=== PATIENT | male | born 1955 | race Caucasian/White ===

== ENCOUNTER 2016-11-05 07:36 | Day surgery (SDC) | payer BC ==
[2016-10-30 10:04] LABS: HEMATOCRIT 45.9 % (40.0-51.0); HEMOGLOBIN 15.8 g/dL (13.6-17.8)
[2016-10-30 10:12] LABS: BUN (BLOOD UREA NITROGEN) 11 MG/DL (6-23); CALCIUM, SERUM 8.8 MG/DL (8.5-10.4); CHLORIDE, SERUM 105 MMOL/L (96-112); CO2 (CARBON DIOXIDE) 27 MMOL/L (24-34); CREATININE 0.98 MG/DL (0.70-1.30); GFR AFRICAN AMERICAN 95 ML/MIN (>=60); GFR NON AFRICAN AMERICAN 82 ML/MIN (>=60); GLUCOSE, SERUM 115 MG/DL (60-99); POTASSIUM, SERUM 3.9 MMOL/L (3.5-5.3); SODIUM, SERUM 141 MMOL/L (135-148)
--- NOTE | ~2016-11-05 | OP ---
Record Of Operation [facility] [address] [place]. [address] NAME: BASIL DIAZ : 51 STATUS : [facility]#: [id number] AGE: 60 ADM/REG DATE : 11/05/16 MR#: [id number] REPORT SERV DATE: 11/05/16 DICTATED BY: LISA BRANHAM DATE: 11/05/16 REPORT STATUS : Draft TRANSCRIBED BY: MODL DATE: 11/05/16 DATE OF PROCEDURE: 11/05/2016 PREOPERATIVE DIAGNOSIS: Right submandibular mixed tumor. POSTOPERATIVE DIAGNOSIS: Right submandibular mixed tumor. PROCEDURE: Right submandibular gland excision. ANESTHESIA: General. COMPLICATIONS: None. COUNTS: All counts were correct following the procedure. ESTIMATED BLOOD LOSS: 5 mL. PREOPERATIVE INFORMED CONSENT: We discussed the risks and benefits of surgery including but not limited to bleeding, infection, possible cranial nerve injury resulting in temporary or permanent deficits, specifically the marginal mandibular nerve, the hypoglossal nerve, and the lingual nerve, and possible postoperative fistula. He understands the risks and benefits of surgery and consent is on the chart. PROCEDURE IN DETAIL: The patient was brought to the operating suite and placed on operative table in supine position. General endotracheal anesthesia was initiated without incident. The patient's right neck was cleaned, prepped, and draped in usual sterile fashion. A curvilinear incision was marked out two fingerbreadths below the lower border of the mandible and injected with 6 mL of 1% lidocaine and 1:100,000 epinephrine. Following this, a #15 blade was used to make an incision down the underlying subcutaneous tissues and down through the platysmal layer, and using curved Metzenbaum scissors, a short platysma flap was raised down the inferior aspect of the submandibular gland taking care to avoid the marginal mandibular nerve, dissecting directly on to the capsule of the submandibular gland, dividing the feeding vessels using Harmonic scalpel. The gland was dissected out surrounding tissues anteriorly. The mylohyoid muscle was dissected out and retracted anteriorly exposing the floor of the submandibular triangle. The terminal branches of the facial artery posteriorly dissected out and divided using the Harmonic scalpel. The hypoglossal nerve and lingual nerve were both identified and preserved. The submandibular ganglion was dissected out and divided using the Harmonic scalpel. The submandibular duct was dissected out and doubly clamped with hemostasis and divided and ligated using 2-0 silk suture ligature. The submandibular gland was removed en bloc and sent for frozen section. 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 The wound was copiously irrigated with sterile saline and closed in layers using 3-0 Vicryl and 4-0 Prolene subcuticular closure followed by benzoin, Steri-Strips, Telfa, and Tegaderm dressing. The patient was awakened from anesthesia and taken to recovery room in stable condition. Record Of Operation [address] [address] NAME: BASIL DIAZ : 51 STATUS : [facility] PAT#: [id number] AGE: 60 ADM/REG DATE : 11/05/16 MR#: [id number] REPORT SERV DATE: 11/05/16 DICTATED BY: LISA BRANHAM DATE: 11/05/16 REPORT STATUS : Draft TRANSCRIBED BY: PARVIN DATE: 11/05/16 CAROLYN/PARVIN Lisa Branham M.D. / [id number] CC: Myra Velásquez M.D.
[~2016-11-05 07:36] MED LIST: ALLEGRA180 PO; HYT5 PO; PRILO PO; SUPER B COMP OR; SYN.025B PO; VITE PO; ZIAC5 PO; ZOCOR10 PO
== END 2016-11-05 15:00 | disposition home or self-care (01) ==
LOC: SDC 07:36
PROVIDERS: Otolaryngology
PROC: 0CTG0ZZ Resection of Right Submaxillary Gland, Open Approach (ICD-10-PCS; principal; 2016-11-05 09:45)
DX: D11.7 Benign neoplasm of other major salivary glands (principal); I10 Essential (primary) hypertension; E78.00 Pure hypercholesterolemia, unspecified; Z91.048 Other nonmedicinal substance allergy status; K21.9 Gastro-esophageal reflux disease without esophagitis; E03.9 Hypothyroidism, unspecified; Z79.899 Other long term (current) drug therapy; Z87.891 Personal history of nicotine dependence; K64.9 Unspecified hemorrhoids; Z98.890 Other specified postprocedural states
CPT/HCPCS: 80048; 85014; 85018; 88307; 88331; 93005; A9270-GY; C1781; J0690; J2250; J2405; J2710; J3010